=== PATIENT | male | born 1980 | race Caucasian/White ===

== ENCOUNTER → 2019-02-04 12:20 | Outpatient (CLI) | payer OTHER, SELFPAY ==
[2015-02-20 23:28] VITALS: BMI 22.9
[2019-02-04 13:25] LABS: Cholesterol 164 mg/dL (200); Glucose 100 mg/dL (74-106); High Density Lipoprotein 60 mg/dL; Triglycerides 75 mg/dL; Very Low Density Lipoprotein 15 mg/dL (5-40)
== END ==
PROVIDERS: Family Provider Family Medicine; PCP Family Medicine; Referring Provider Family Medicine; Visit Provider Family Medicine
DX: Z82.49 Family history of ischemic heart disease and other diseases of the circulatory system (principal)
CPT/HCPCS: 36415; 80061; 82947

== ENCOUNTER 2019-08-15 20:11 | Emergency (ER) | payer OTHER, SELFPAY ==
[2019-08-15 20:13] VITALS: BP 136/61; PULSE 105; RESP 19; TEMP 36.4; O2SAT 98; BMI 25.1
[2019-08-15 20:17] VITALS: TEMP 36.4
--- NOTE | 2019-08-15 20:24 | EKG12_ITS ---
Test Reason : TRAUMA Blood Pressure : / mmHG Vent. Rate : 073 BPM Atrial Rate : 073 BPM P-R Int : 142 ms QRS Dur : 106 ms QT Int : 386 ms P-R-T Axes : 075 067 049 degrees QTc Int : 425 ms Normal sinus rhythm Normal ECG Confirmed by MARQUIS JO ([id number]), film and video editor KARLA LICEA ([id number]) on 08/19/2019 11:56:39 AM Referred By: SAUL Confirmed By:MARQUIS JO
--- NOTE | 2019-08-15 20:25 | CT_ITS ---
STUDY: CT ABDOMEN AND PELVIS WITH CONTRAST REASON FOR EXAM: Male, 39 years old. Trauma RADIATION DOSAGE (If Supplied By Facility): CTDIvol = ( 12.51 ) mGy, DLP = ( 1338.32 ) mGycm TECHNIQUE: CT images were obtained from the dome of the diaphragm to the symphysis pubis without oral contrast. IV 100mL Isovue-300 was administered. Sagittal and coronal images were reconstructed. Individualized dose optimization techniques were used for this CT. COMPARISON: None. FINDINGS: There is complete splenic rupture with separation into 2 segments and surrounding partially contained hematoma. There is no active arterial extravasation. Splenic vein is intact. There is moderate right upper quadrant perihepatic hemorrhagic fluid. There is irregularity of the liver surface segment 6 with hyperdense irregular appearance. It is unclear if this is a ruptured hemangioma or significantly less likely active extravasation. Kidneys, adrenals and pancreas are intact. There is moderate hemoperitoneum. Osseous structures are intact. CT/Abdomen/Pelvis W IV Cont ONLY IMPRESSION: 1. High grade, presumably 3, splenic rupture with extensive hemoperitoneum. 2. Low-grade hepatic rupture, with possible but not likely arterial extravasation. Consider catheter angiography for confirmation and therapeutic control especially in the hemodynamic likely unstable patient. In the hemodynamically stable patient imaging follow-up with CT is adequate. N.B. : The above information has been verbally conveyed by David Recinos to Dr. Rea, AA, on 08/15/2019 21:13:08 (ET). Electronically Signed: David Recinos, at 21:17 EDT Tel , Service support ,
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
[2019-08-15 20:40] LABS: Absolute Lymphocyte Count 1.52 X10^3/uL (0.83-4.51); Basophil# 0.04 X10^3/uL; Basophil% 0.2 % (0-1); Eosinophil# 0.01 X10^3/uL; Hemoglobin 13.8 g/dL (13.0-16.5); Lymphocyte # 1.52 X10^3/ul (4.0); Lymphocyte % 6.7 % (19-41); Mean Corp Hgb Conc 35.4 g/dL (32-36); Mean Corpuscular Hgb 30.9 pg (27.0-32.0); Mean Corpuscular Volume 87.2 fL (80-94); Mean Platelet Vol. 8.9 fl (6.2-12.0); Monocyte# 1.07 X10^3/uL; Monocyte% 4.7 % (0-10); NRBC Flagged by Analyzer 0 % (0-5); Neutrophil # 19.95 X10^3/uL (2.7-7.7); Neutrophil % 87.6 % (47-70); Platelet Count 379 K/mm3 (150-450); RBC Distribution Width CV 11.8 % (11.6-14.6); RBC Distribution Width SD 37.2 fl (35.1-43.9); Red Blood Count 4.47 M/mm3 (4.6-6.2); White Blood Count 22.8 K/mm3 (4.4-11.0)
--- NOTE | 2019-08-15 20:44 | CT_ITS ---
STUDY: CT CERVICAL SPINE WITHOUT CONTRAST REASON FOR EXAM: Male, 39 years old. Trauma RADIATION DOSAGE (If Supplied By Facility): CTDIvol = ( 22.58 ) mGy, DLP = ( 514.64 ) mGycm TECHNIQUE: High resolution transaxial imaging was performed without contrast material. Sagittal and coronal images were reconstructed. Individualized dose optimization techniques were used for this CT. COMPARISON: None FINDINGS: Craniocervical junction and cervical spine are intact and aligned. Mineralization is normal. Paraspinous soft tissues are normal. Spinal canal is patent at all levels. Neural foramina are patent. CT/Spine Cervical without Contras IMPRESSION: 1. Unremarkable cervical spine. No acute osseous injury. Electronically Signed: David Recinos, at 21:08 EDT Tel , Service support ,
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
[2019-08-15 20:53] LABS: Anion Gap 11 (5-15); BUN 23 mg/dL (7-18); BUN/Creat Ratio 19.3 RATIO (10-20); Calcium,Total 9.2 mg/dL (8.5-10.1); Chloride 102 mmol/L (98-107); Creatinine, Serum 1.19 mg/dL (0.70-1.30); EST Glomerular Filtration Rate 72 mL/min (>60); Est Glom Filt Rate - Afr Amer 87 mL/min (>60); Estimated Creatinine Clearance 81.69 ml/min; Glucose 144 mg/dL (74-106); Potassium 2.9 mmol/L (3.5-5.1); Sodium Level 137 mmol/L (136-145)
[2019-08-15 21:02] LABS: Partial Thromboplast Time 21.8 Seconds (24.1-36.2)
[2019-08-15 21:06] VITALS: BP 136/61; PULSE 74; RESP 14; O2SAT 100
[2019-08-15 21:19] LABS: Bacteria 0 SEEN /hpf (None Seen); Mucous, Urine 0 SEEN /hpf (<or=2+); White Blood Cells 0 SEEN /hpf (0-5)
[2019-08-15 21:20] VITALS: PULSE 75; RESP 17; O2SAT 100
[2019-08-15 21:20] LABS: Color, Urine Yellow (Yellow); Glucose, Dipstick Normal (Normal); Ketone-Dipstick 50 mg/dl (Negative); Leukocyte Esterase-Dipstick Negative /ul (Negative); Nitrite-Dipstick Negative (Negative); Occult Blood-Urine 250 /ul (Negative); Protein-Dipstick 30 mg/dl (Negative); Specific Gravity, Urine 1.015 (1.002-1.030); Urine Bilirubin Dipstick Negative (Negative); Urine Clarity Clear (Clear); Urine Urobilinogen Normal (Normal)
[2019-08-15 21:28] LABS: Red Blood Cells-Urine 25-50 SEEN /hpf (0-5)
[2019-08-15 21:29] LABS: Squamous Epithelial Cells - UA 0-5 SEEN /hpf (0-5)
[2019-08-15 21:36] LABS: International Normalized Ratio 1.2; Prothrombin Time (Protime)PT. 14.9 SECONDS (11.7-14.9)
== END 2019-08-15 21:21 | disposition short-term general hospital (02) ==
PROVIDERS: Emergency Provider Emergency Medicine; PCP Family Medicine
DX: S36.09XA Other injury of spleen, initial encounter (principal); S36.112A Contusion of liver, initial encounter; W31.89XA Contact with other specified machinery, initial encounter; Y93.H9 Activity, other involving exterior property and land maintenance, building and construction; Y92.9 Unspecified place or not applicable; Y99.9 Unspecified external cause status
CPT/HCPCS: 71045; 72125; 74177; 80048; 81001; 85025; 85610; 85730; 93005; 99284; J7030; A4216

== ENCOUNTER 2019-09-24 07:06 | Day surgery (SDC) | payer OTHER, SELFPAY ==
[2019-09-24 07:31] VITALS: BP 122/71; PULSE 61; RESP 15; TEMP 37.1; O2SAT 100; BMI 22.9
[2019-09-24] MEDS: Lactated Ringers 1,000 ML 100 ML IV (07:40)
[2019-09-24 08:37] LABS: BUN 15 mg/dL (7-18); Creatinine, Serum 0.88 mg/dL (0.70-1.30); Estimated Creatinine Clearance 119.84 ml/min; Glucose 95 mg/dL (74-106)
[2019-09-24 08:38] LABS: Anion Gap 4 (5-15); Calcium,Total 8.4 mg/dL (8.5-10.1); Chloride 109 mmol/L (98-107); EST Glomerular Filtration Rate 101 mL/min (>60); Est Glom Filt Rate - Afr Amer 122 mL/min (>60); Potassium 3.8 mmol/L (3.5-5.1); Sodium Level 141 mmol/L (136-145)
[2019-09-24] MEDS: Cefazolin 2 GM in 0.9% Normal Saline 100 ML IV (09:00)
[2019-09-24] MEDS: Bupiv/Epi 0.5% Mpf 30 ML Vial (09:21)
[2019-09-24] MEDS: Epinephrine (1 mg/ml) 1 MG/ML VIAL (09:21)
--- NOTE | 2019-09-24 10:45 | OP.PCM_ITS ---
Report of Operation Date of Procedure: 09/24/19 Pre-Operative Diagnosis: ACL and lateral meniscus tears left knee Post-Operative Diagnosis: same Surgery/Procedure Performed:: Arthroscopically assisted ACL reconstruction and partial lateral meniscectomy head of transport logistics: Tariq Bazan Type of Anesthesia:: General/Regional Anesthesiologist: Sreekanth Dyer - Admit VTE Documentation VTE Present on Admission: No VTE Mechan Device Prophylaxis: SCD's, Thigh High [place] Hose VTE Pharm Prophylaxis ordered?: Yes
[2019-09-24 11:16] VITALS: BP 120/91; BP 122/74; PULSE 72; RESP 16; TEMP 36.3; O2SAT 99
[2019-09-24 11:30] VITALS: BP 116/70; BP 122/74; PULSE 61; RESP 16; O2SAT 100
[2019-09-24 11:45] VITALS: BP 122/74; BP 98/62; PULSE 49; RESP 16; O2SAT 97
[2019-09-24 12:01] VITALS: BP 107/62; BP 122/74; PULSE 65; RESP 16; TEMP 36.3; O2SAT 100
[2019-09-24 13:15] VITALS: BP 102/61; BP 122/74; PULSE 65; RESP 16; TEMP 36.2; O2SAT 100
== END 2019-09-24 13:35 | disposition home or self-care (01) ==
LOC: SDC 07:12 → AC 07:14
PROVIDERS: Anesthesiology; PCP Family Medicine; Referring Provider Orthopaedic Surgery; Visit Provider Orthopaedic Surgery
PROC: (CPT 29888; principal; 2019-09-24 08:25)
DX: S83.512A Sprain of anterior cruciate ligament of left knee, initial encounter (principal); S83.282A Other tear of lateral meniscus, current injury, left knee, initial encounter; M17.12 Unilateral primary osteoarthritis, left knee; X58.XXXA Exposure to other specified factors, initial encounter; Y93.9 Activity, unspecified; Y92.9 Unspecified place or not applicable; Y99.9 Unspecified external cause status; Z11.59 Encounter for screening for other viral diseases
CPT/HCPCS: 01400; 29881; 29888; 36415; 80048; 87635; 94799; J7120; J2405; U0003

== ENCOUNTER → 2020-09-18 18:43 | Outpatient (CLI) | payer BC, SELFPAY ==
--- NOTE | 2020-09-18 18:56 | RAD_ITS ---
STUDY: X-RAY - PELVIS AND RIGHT HIP REASON FOR EXAM: Male, 40 years old. Right hip pain. TECHNIQUE: 3 views of the pelvis and hip. COMPARISON: 09/10/2013 FINDINGS: There is a non-specific bowel gas pattern. Normal visualized soft tissue structures. Normal bilateral iliac wings, sacroiliac joints and visualized sacrum. Normal bilateral superior and inferior pubic rami. Normal pubic symphysis. Normal bilateral ischial tuberosities. Progression of osteoarthrosis of the right hip with subchondral sclerosis, subchondral cyst formation and increased osteophyte formation. Moderate arthrosis of the left hip with osteophytes. RAD/HIP, UNI W/ Pelvis 2-3 Views IMPRESSION: Progression of osteoarthrosis of the right hip. Moderate arthrosis of the left hip with osteophyte formation. Electronically Signed: Tariq Mtz MD at 11:06 EDT , Service support ,
== END ==
PROVIDERS: PCP Family Medicine; Visit Provider Chiropractor
DX: M25.552 Pain in left hip (principal)
CPT/HCPCS: 73502

== ENCOUNTER 2020-10-30 19:03 | Emergency (ER) | payer BC, SELFPAY ==
[2020-10-30 19:04] VITALS: BP 112/81; PULSE 70; RESP 15; TEMP 36.3; BMI 25.0
--- NOTE | 2020-10-30 19:55 | ED.RN ---
Pt ripped off his ID band and states i'll take my chances and walked out.
== END 2020-10-30 19:53 | disposition left against medical advice (07) ==
LOC: ED 19:58
PROVIDERS: PCP Family Medicine
DX: T16.9XXA Foreign body in ear, unspecified ear, initial encounter (principal); Z53.21 Procedure and treatment not carried out due to patient leaving prior to being seen by health care provider; X58.XXXA Exposure to other specified factors, initial encounter; Y93.9 Activity, unspecified; Y92.9 Unspecified place or not applicable; Y99.9 Unspecified external cause status

== ENCOUNTER 2021-11-25 09:17 | Emergency (ER) | payer BC, SELFPAY ==
[2021-11-25 09:18] VITALS: BP 137/83; PULSE 66; RESP 14; TEMP 36.5; O2SAT 99; BMI 25.0
--- NOTE | 2021-11-25 09:27 | RAD_ITS ---
STUDY: X-RAY - RIGHT ANKLE REASON FOR EXAM: Male, 41 years old. INJURY TECHNIQUE: 4 view(s) of the ankle. COMPARISON: None. FINDINGS: Normal visualized distal tibia and fibula. Normal medial and lateral malleoli. Normal tibiotalar articulation and ankle mortise. Normal visualized talus and calcaneus. The visualized subtalar, talonavicular, calcaneocuboid and tarsal articulations are normal. There is diffuse soft tissue swelling about the ankle. RAD/Ankle min 3 Views IMPRESSION: Soft tissue edema. No visible fracture. Electronically Signed: Carlotta Beaulieu MD at 9:49 EDT Reading Location ID and State: [facility] / [place] Tel , Service support ,
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
[2021-11-25 10:14] VITALS: BP 118/69; PULSE 72; RESP 15; O2SAT 98
== END 2021-11-25 10:21 | disposition home or self-care (01) ==
PROVIDERS: Emergency Provider Emergency Medicine; PCP Family Medicine; Visit Provider Emergency Medicine
DX: S93.401A Sprain of unspecified ligament of right ankle, initial encounter (principal); V29.888A Rider (driver) (passenger) of other motorcycle injured in other specified transport accidents, initial encounter
CPT/HCPCS: 73610; 99283

== ENCOUNTER 2022-07-23 14:55 | Emergency (ER) | payer BC, SELFPAY ==
[2022-07-23 14:56] VITALS: BP 152/88; PULSE 115; RESP 18; TEMP 36.9; O2SAT 99; BMI 24.7
--- NOTE | 2022-07-23 15:44 | EDS_ITS ---
HPI HPI - Psych History of Present Illness Chief Complaint: Anxiety Narrative Narrative: 42-year-old male significant past medical history presenting after he had a anxiety attack. He states that it was very severe and he could not control his breathing and he passed out. He does not think he passed out for very long. He states that his ex- is still affiliated with his family. He states he gave his family an ultimatum previously because she cheated on him with his friend and did not want his family involved with her. He found out recently that she was still involved and he states that since he made the ultimatum his family chose her. Patient also states that he found out that his boss was having inappropriate text conversations with his new girlfriend. He states that he confronted his boss at work about it but his boss stated that he had deleted the conversation. He states he could tell he was lying so he went home and confronted his girlfriend who also stated she deleted the text. He states he opened a laptop computer which was sinks to her phone and saw all the messages which are inappropriate. He stated at that point he could not control his breathing and had a panic attack. He does not have a history of this. [facility] Medical History History of liver injury History of spleen injury Home Medications NK 07/23/22 [History Last Taken Unknown] Allergy/AdvReac Type Severity Reaction Status Date / Time acetaminophen [From Percocet] AdvReac Vomiting Verified 07/23/22 14:59 Opioids - Morphine Analogues AdvReac Vomiting Verified 07/23/22 14:59 [narcotics] oxycodone AdvReac Vomiting Verified 07/23/22 14:59 Surgical History Hx of knee surgery Social History Smoking Status: Never smoker ROS ROS ED Constitutional Constitutional ED: Denies chills, fever(s) or sweats Eyes Eyes: Denies blurry vision or change in vision ENT ENT ED: Denies ear pain or sore throat Cardiovascular Cardiovascular: Denies chest pain, palpitations or racing heartbeat Respiratory/Chest Respiratory/Chest: Denies cough, dyspnea or sputum Gastrointestinal Gastrointestinal: Denies abdominal pain, constipation, diarrhea, nausea or vomiting Genitourinary Genitourinary ED: Denies dysuria, hematuria or urinary frequency Musculoskeletal Musculoskeletal: Denies arthralgias, myalgias or neck pain Integumentary Denies abscess, Abrasions or rash Neurologic Neurologic: Denies headache(s), paresthesias or weakness Psychiatric Psychiatric: Reports anxiety and depression; Denies suicidal ideation or suicidal thoughts Endocrine Endocrinology: Denies polydipsia or polyuria EXAM Physical Exam Const Vital Signs: 07/23/22 14:56 Temperature 98.4 F Temperature Source Temporal Pulse Rate 115 H Respiratory Rate 18 Blood Pressure 152/88 H Blood Pressure Mean 109 Pulse Ox 99 Oxygen Delivery Method Room Air Positive well nourished HEENT Reports moist mucous membranes normocephalic and atraumatic Resp normal respiratory effort Cardio Rate: tachycardic Neuro oriented x3 and CN's II-XII intact bilaterally Sensorium / Orientation: alert Psych cooperative Appearance: grossly normal and appropriate Attitude: calm Activity / Motor Behavior: appropriate eye contact Attention / Concentration: attention grossly intact and concentration grossly intact Memory / Cognition: memory grossly intact Insight: insight good Judgement: judgement good MDM MDM MDM Narrative Medical decision making narrative: Patient presenting after having a panic attack. He states he is like this before. He states that he basically lost his job, his girlfriend, his family all within the last 24 hours. He is depressed but is not suicidal and is not homicidal. He refuses any kind of work-up. I offered a syncope work-up including an EKG but he refuses. He states he recently had blood work done and it was normal. I clarified again that this was more of a cardiac evaluation and he still refused. I feel he has the capacity to make this decision. We discussed this at length. I will have social work give him some resources. Impression: 1. Anxiety attack 2. Syncope Lab Data Attestation: I reviewed the patient's lab results. Discharge Plan Triage Chief Complaint: Anxiety ED Provider: Nabil Staley Dx/Rx/DC Orders Instructions: ED Anxiety Reaction Prescriptions: No Action NK Primary Care Provider: Atif Montes Referrals: Atif Montes MD [Primary Care Provider] - Disposition Disposition: Home, Self Care
--- NOTE | 2022-07-23 15:58 | ED.RN ---
DR. SABA TO SEE.
--- NOTE | 2022-07-23 16:00 | CM.ED ---
Social Work Received call from KATHY Bowden about patient in need of some mental health resources. Per RN, no identified SI but presented with a panic attack due to some situational issues going on in personal life. Per RN, patient willing to take some resources for home going. Provided RN with list of counseling resources, information on [facility] program, and this senior technical writer's contact information should patient have questions about information or where to turn. If physician feels patient does need to be seen in person for a mental health assessment, due to timing of day this date, patient would need to be seen by crisis at [facility]. -FRANCO Cole, SCIENTIFIC SOFTWARE ENGINEER
--- NOTE | 2022-07-23 16:15 | ED.RN ---
THIS RN SPOKE WITH PATIENT. PATIENT DECLINED [facility] SERVICE. THIS RN REVIEWED AND GAVE PT PHONE NUMBERS FOR MENTAL HEALTH SERVICES ALONG WITH ALL RESOURCES FROM OUR INTERVENTIONAL CARDIOLOGIST. PT VERBALIZES UNDERSTANDING AND WISHES TO LEAVE AND GO HOME. IV DISCONTINUED. AND PT LEFT THE DEPT
[2022-07-23 16:24] VITALS: RESP 18
--- NOTE | 2022-07-24 20:57 | CM.ED ---
Social Work SW called patient to follow up with referrals and support. No answer, voicemail left to return call for SW. Gayla Hitchcock ORACLE IAM CONSULTANT, PROBATION WORKER
== END 2022-07-23 16:24 | disposition home or self-care (01) ==
PROVIDERS: Emergency Provider Student in an Organized Health Care Education/Training Program; PCP Family Medicine; Visit Provider Student in an Organized Health Care Education/Training Program
DX: F41.1 Generalized anxiety disorder (principal); R55 Syncope and collapse
CPT/HCPCS: 99283